=== PATIENT | male | born 1975 | race Two or more races ===

== ENCOUNTER 2024-08-29 02:51 | Emergency (ER) | payer MEDICAID, SELFPAY ==
--- NOTE | ~2024-08-29 | XR_ITS ---
EXAMINATION: XR SHOULDER, RIGHT CLINICAL INFORMATION: pain after throwing a suitcase at work COMPARISON: None available. TECHNIQUE: AP external rotation, Grashey, scapular Y, and axillary views of the right shoulder. FINDINGS: The bone mineralization is normal. There is no fracture. The joint spaces are maintained. There is an enthesophyte arising from the attachment of the supraspinatus tendon. Soft tissues are otherwise unremarkable. XR/XR shoulder RT min 2V IMPRESSION: Enthesophyte arising from the attachment of the supraspinatus tendon. No acute osseous abnormality. Electronically signed by: Denilson Metz MD 08/29/2024 04:21 AM EST
[2024-08-29 02:54] VITALS: BP 155/92; PULSE 92; RESP 18; TEMP 36.2; O2SAT 100; BMI 40.3
--- NOTE | 2024-08-29 04:01 | ED_ITS ---
HPI - Extremity Problem General Chief complaint: Extremity Injury, Upper Stated complaint: right shoulder pain Time Seen by Provider: 08/29/24 03:52 Source: patient Mode of arrival: ambulatory Limitations: no limitations History of Present Illness ED Provider: Dr. Lilia Kinney HPI Narrative: Patient comes to the emergency room complaining of right shoulder pain. Patient states that he works a [employer], states that when he was working, he threw a suitcase on the belt, heard that his shoulder popped. Patient denies any other injuries. Related Data Previous Rx's ?Medication ?Instructions ?Recorded acetaminophen 500 mg tablet 500 mg PO Q6H PRN pain #14 tabs 08/29/24 cyclobenzaprine 10 mg tablet 10 mg PO TID PRN muscle spasm #14 08/29/24 tabs ibuprofen 600 mg tablet 600 mg PO Q8H PRN fever or pain 08/29/24 #14 tabs Allergies Allergy/AdvReac Type Severity Reaction Status Date / Time epinephrine [EPINEPHRINE] Allergy Intermediate PALPATATION Verified 08/29/24 04:03 S Review of Systems Review of Systems: Constitutional : No Weight loss, No Fever, No Chills, No Night Sweats, No Fatigue, No Malaise ENT/Mouth : No Hearing loss, No Ear Pain, No Nasal Congestion, No Sinus Pain, No Hoarseness, No sore throat, No Rhinorrhea, No Swallowing Difficulty Eyes: No Eye Pain, No Swelling, No Redness, No Foreign Body, No Discharge, No Vision Changes Cardiovascular : No Chest Pain, No SOB, No Dyspnea on Exertion, No Orthopnea, No Edema, No Palpitations Respiratory : No Cough, No Sputum, No Wheezing, No Smoke Exposure, No Dyspnea Gastrointestinal : No Nausea, No Vomiting, No Diarrhea, No Constipation, No abdominal Pain, No Hematochezia, No Melena Genitourinary : no irregular bleeding, No Dysuria, No Urinary Frequency, No Hematuria, No Urinary Incontinence, No Urgency, No Flank Pain, No Urinary Flow Changes, No Hesitancy Musculoskeletal : Complaining of right shoulder pain, No Myalgias, No Joint Swelling Skin : No Skin Lesions, No rash Neuro : No Weakness, No Numbness, No Paresthesias, No Loss of Consciousness, No Dizziness, No Headache Psych : No Anxiety/Panic, No Depression, No SI/HI/AH/VH, No Social Issues, Heme/Lymph: No Bruising, No Bleeding,No Lymphadenopathy Endocrine : No Polyuria, No Polydipsia, No Temperature Intolerance COUNTS INCLUDE 234 BEDS AT THE [facility] Social History Social History Alcohol intake: current Alcohol intake frequency: a few times a month Alcohol type: beer and hard liquor Smoked in Last 30 Days: No Use of substances other than those prescribed or required for medical reasons: No Advance Directives: No Advance Directives Information Provided: Yes Physical Exam Vital Signs: Vital Signs: Last Vital Signs Temp 98.1 F 08/29/24 04:23 Pulse 73 08/29/24 04:23 Resp 16 08/29/24 04:23 BP 121/63 08/29/24 04:23 Pulse Ox 96 08/29/24 04:23 O2 Del Method Room Air 08/29/24 04:23 BMI result Body Mass Index 40.3 Const: Other: Appearance: Alert. Oriented X3. No acute distress. Eyes: Pupils equal, round and reactive to light. ENT: Pharynx normal. Neck: Normal inspection. Neck supple. No lymph nodes noted. No crepitus CVS: Normal heart rate and rhythm. Pulses normal. Normal S1 and S2 Respiratory: No respiratory distress. Breath sounds normal. No Wheezing. No rales Abdomen: Soft and nontender. No rigidity. No distention. Skin: Skin warm and dry. Normal skin color. Normal skin turgor. Extremities: No lower extremity edema. No Lacerations. No Rash. Patient is able to flex and extend and abduct with full range of motion both shoulders. Patient states it hurts doing so it still able to do so. Neuro: Oriented X 3. No motor deficit. No sensory deficit. Moving all extremities. No slurred speech. CN 2 through 12 grossly intact Psych: calm, cooperative, normal affect Medical Decision Making Medical Decision Making MDM Narrative: My interpretation of x-ray, no obvious abnormality. Radiology report pending Patient was given p.o. ibuprofen. Patient may have a ligament injury, rotator cuff injury. Also, it is possible the patient may indeed have temporarily dislocated his shoulder popped back in by itself? I discussed with the patient that if the pain does not improve within the next week, he may need to follow-up with his primary care physician and be referred to physical therapy versus MRI imaging Independent Interpretation I performed an independent interpretation of an: Plain X-Ray Radiology Impression Discussion of test interpretation with radiology: I have reviewed the radiologist's reading. Radiologist Impression: The bone mineralization is normal. There is no fracture. The joint spaces are maintained. There is an enthesophyte arising from the attachment of the supraspinatus tendon. Soft tissues are otherwise unremarkable Discharge Plan Discharge Clinical Impression: Acute pain of right shoulder Patient Disposition: Home, Self-Care Instructions: Arthralgia (ED) Additional Instructions: Please follow-up with your primary care physician tomorrow. If you have any worsening or new symptoms, please return to the emergency room or call 911 Prescriptions: New acetaminophen 500 mg tablet 500 mg PO Q6H PRN (Reason: pain) Qty: 14 0RF ibuprofen 600 mg tablet 600 mg PO Q8H PRN (Reason: fever or pain) Qty: 14 0RF cyclobenzaprine 10 mg tablet 10 mg PO TID PRN (Reason: muscle spasm) Qty: 14 0RF Stand Alone Forms: Work/School Release Print Language: Armenian
[2024-08-29 04:23] VITALS: BP 121/63; PULSE 73; RESP 16; TEMP 36.7; O2SAT 96
[2024-08-29] MEDS: Ibuprofen 600 MG TABLET PO (04:44)
[2024-08-29 04:45] VITALS: BP 121/63; PULSE 73; RESP 16; TEMP 36.7; O2SAT 96
== END 2024-08-29 04:50 | disposition home or self-care (01) ==
PROVIDERS: Emergency Provider Emergency Medicine
DX: M25.511 Pain in right shoulder (principal)
CPT/HCPCS: 73030; 99283; 99284